=== PATIENT | male | born 1955 | race American Indian/Alaskan Native ===

== ENCOUNTER 2020-07-29 09:49 | Outpatient (CLI) | payer BC ==
[2020-07-29 11:02] LABS: Blood Urea Nitrogen 16 mg/dL (9-20)
--- NOTE | 2020-07-29 12:24 | Cat Scan Report ---
CT abdomen pelvis wo/w con INDICATION: Abdominal pain.. COMPARISON: None TECHNIQUE: Abdominal and pelvic CT exam performed. All CT scans at this location are performed using CT dose reduction for ALARA by means of automated exposure control. FINDINGS: CT ABDOMEN and PELVIS: Lung Bases: No significant abnormality. Liver: Scattered hepatic cysts. Biliary: Gallstones without gallbladder wall thickening or pericholecystic fluid. Spleen: No significant abnormality. Pancreas: No significant abnormality. Adrenals: No significant abnormality. Kidneys: No significant abnormality. Lymphatics: No lymphadenopathy. Vasculature: No significant abnormality. Bowel: No significant abnormality. Appendix is surgically absent. Pelvis: No significant abnormality. Osseous Structures: No aggressive osseous lesion. Levoscoliosis with apex at L4. Additional Findings: None IMPRESSION: 1. No acute abnormality of the abdomen or pelvis. 2. Cholelithiasis without cholecystitis. 3. Levoscoliosis. Signer Name: Zheng Mejia MD Signed: 07/29/2020 12:20 PM Workstation Name: [id number]
--- NOTE | 2020-07-29 13:52 | XRay Report ---
Sternum-4 total views INDICATION: OTHER SPECIFIED DISORDERS OF BONE,OTHER SITE. COMPARISON: None. IMPRESSION: There is motion artifact on the 2 lateral views which significantly limits evaluation. Q uestionable irregularity of the distal sternal body is noted. Recommend follow-up CT chest without co ntrast for further evaluation. No rib fracture identified. There is scoliotic curvature of the spine with grossly clear lungs. Signer Name: Jong Wu MD Signed: 07/29/2020 1:48 PM Workstation Name: [id number]
== END 2020-07-29 09:50 | disposition home or self-care (01) ==
LOC: CT 09:49
DX: K80.20 Calculus of gallbladder without cholecystitis without obstruction (principal); K76.89 Other specified diseases of liver; M41.80 Other forms of scoliosis, site unspecified; M89.8X8 Other specified disorders of bone, other site
CPT/HCPCS: 36415; 71120; 74178; 82565; 84520; Q9967